=== PATIENT | female | born 1950 | race Caucasian/White ===

== ENCOUNTER 2018-07-08 12:39 | Inpatient (IN) | payer MEDICARE, MEDICAID ==
[~2018-07-08] VITALS: Ht 162.6 cm; Wt 55.8 kg
[2018-07-08] MEDS ORDERED: MORPHINE SULFATE 4 MG/ML CPJ (NOT FOR IM USE) IV STA (21:49)
[2018-07-08] MEDS ORDERED: ONDANSETRON HCL 4MG/2ML INJ IV STA (21:49)
[2018-07-08] MEDS ORDERED: BACLOFEN 10MG TABLET PO ONE (22:00)
[2018-07-08 22:23] LABS: BASOPHILS % 0.4 % (0.0-2.0); EOSINOPHILS % 0.8 % (0.0-5.0); HEMATOCRIT. 37.7 % (36.0-48.0); HEMOGLOBIN. 12.5 g/dL (12.0-16.0); LYMPHOCYTES % 17.6 % (20.0-50.0); MEAN CORPUSCULAR HEMOGLOBIN 30.4 pg (28.0-32.0); MEAN CORPUSCULAR VOLUME 91.8 fL (81.0-99.0); MEAN PLATELET VOLUME 8.5 fl (7.4-10.4); MONOCYTES % 8.1 % (2.0-8.0); NEUTROPHILS % 73.1 % (40.0-76.0); PLATELET 237 x1000/uL (130-400); RED BLOOD CELL COUNT 4.11 mill/uL (4.2-5.4); RED CELL DISTRIBUTION WIDTH 13.3 % (11.6-14.6)
[2018-07-08 22:29] LABS: CHLORIDE 107 mEq/L (98-107)
[2018-07-09] MEDS ORDERED: ASPIRIN 325MG EC TABLET PO ONE (00:45)
[2018-07-09] MEDS ORDERED: MAGNESIUM/ALUMINUM HYDROXIDE/SIMETHICONE 30ML UDC PO PRN (01:00)
[2018-07-09] MEDS ORDERED: IPRATROPIUM/ALBUTEROL 0.5-3(2.5)MG/3ML NEB INH PRN (01:00)
[2018-07-09] MEDS ORDERED: DOCUSATE SODIUM 100MG CAPSULE PO PRN (01:00)
[2018-07-09] MEDS ORDERED: NA PHOS,M-B/NA PHOS,DI-BA ENEMA 118ML PR PRN (01:00)
[2018-07-09] MEDS ORDERED: ACETAMINOPHEN 325MG TABLET PO PRN (01:00)
[2018-07-09] MEDS ORDERED: ONDANSETRON HCL 4MG/2ML INJ IV PRN (01:00)
[2018-07-09] MEDS ORDERED: CLONIDINE 0.1MG TABLET PO PRN (01:00)
[2018-07-09] MEDS ORDERED: HYDROMORPHONE HCL/PF 2MG/ML CPJ IV NR (04:30)
[2018-07-09 05:37] LABS: CREATINE KINASE MB FRACTION 2.1 ng/mL (0.5-3.6)
[2018-07-09 09:45] VITALS: BP 145/69
[2018-07-09] MEDS ORDERED: HYDROMORPHONE HCL/PF 2MG/ML CPJ IV PRN (09:50)
[2018-07-09 10:00] VITALS: BP 145/69
[2018-07-09] MEDS ORDERED: AMLODIPINE 10MG TABLET PO SCH (10:00)
[2018-07-09] MEDS ORDERED: LIOT25TA7 MT (10:31)
[2018-07-09] MEDS ORDERED: SYN150 MT (10:31)
[2018-07-09] MEDS ORDERED: LORA10CA MT (10:31)
[2018-07-09] MEDS ORDERED: BACL20TA MT (10:40)
[2018-07-09] MEDS ORDERED: PANT40TA4 MT (10:40)
[2018-07-09] MEDS ORDERED: BACL-141 MT (10:40)
[2018-07-09] MEDS ORDERED: MAGN250T10 MT (10:40)
[2018-07-09] MEDS ORDERED: ESTR0.6264 PO (10:40)
[2018-07-09] MEDS ORDERED: MIRA25TA MT (10:40)
[2018-07-09] MEDS ORDERED: CARV6.2548 MT (10:40)
[2018-07-09 12:00] VITALS: BP 133/57
[2018-07-09] MEDS ORDERED: ESTROGENS,CONJUGATED 0.625MG TABLET PO SCH (13:00)
[2018-07-09] MEDS ORDERED: LIOTHYRONINE SODIUM 25 MCG PO SCH (13:00)
[2018-07-09] MEDS: ENOXAPARIN 40MG/0.4ML SYR SUBCUT SCH (13:21)
[2018-07-09] MEDS: PANTOPRAZOLE 40MG DR TABLET PO SCH (13:22)
[2018-07-09] MEDS: BACLOFEN 10MG TABLET PO SCH ×2 (13:22→16:59)
[2018-07-09] MEDS: CARVEDILOL 6.25 MG TABLET PO SCH ×2 (13:22→22:00)
[2018-07-09] MEDS: LEVOTHYROXINE SODIUM 150MCG TABLET PO SCH (13:22)
[2018-07-09] MEDS: LIOTHYRONINE SODIUM 5MCG TABLET PO SCH (15:37)
[2018-07-09 16:00] VITALS: BP 121/46
[2018-07-09 16:35] LABS: CREATINE KINASE MB FRACTION 2.2 ng/mL (0.5-3.6)
[2018-07-09] MEDS: HYDROCODONE/ACETAMINOPHEN 5/325MG TABLET PO PRN (16:59)
[2018-07-09] MEDS ORDERED: BACLOFEN 20MG TABLET PO SCH (18:00)
[2018-07-09] MEDS ORDERED: BACLOFEN 10MG TABLET PO SCH ×2 (18:00→21:00)
[2018-07-09 20:00] VITALS: BP 110/65
[2018-07-09] MEDS: BACLOFEN 20MG TABLET PO SCH (22:00)
[2018-07-09] MEDS: PREMARIN XX SCH (22:01)
[2018-07-10] VITALS: BP 112/59
[2018-07-10] MEDS: HYDROCODONE/ACETAMINOPHEN 5/325MG TABLET PO PRN (02:50)
[2018-07-10 04:00] VITALS: BP 107/48
[2018-07-10] MEDS: PANTOPRAZOLE 40MG DR TABLET PO SCH (06:17)
[2018-07-10] MEDS: LEVOTHYROXINE SODIUM 150MCG TABLET PO SCH (06:17)
[2018-07-10 06:30] LABS: BASOPHILS % 0.7 % (0.0-2.0); EOSINOPHILS % 2.1 % (0.0-5.0); HEMATOCRIT. 33.7 % (36.0-48.0); HEMOGLOBIN. 11.3 g/dL (12.0-16.0); LYMPHOCYTES % 24.1 % (20.0-50.0); MEAN CORPUSCULAR HEMOGLOBIN 30.6 pg (28.0-32.0); MEAN CORPUSCULAR VOLUME 91.4 fL (81.0-99.0); MEAN PLATELET VOLUME 8.6 fl (7.4-10.4); MONOCYTES % 9.5 % (2.0-8.0); NEUTROPHILS % 63.6 % (40.0-76.0); PLATELET 204 x1000/uL (130-400); RED BLOOD CELL COUNT 3.69 mill/uL (4.2-5.4); RED CELL DISTRIBUTION WIDTH 13.1 % (11.6-14.6)
[2018-07-10 06:48] LABS: CHLORIDE 105 mEq/L (98-107)
[2018-07-10 07:00] LABS: LDL CHOLESTEROL 101 mg/dL (5-100)
[2018-07-10 07:01] LABS: HDL CHOLESTEROL 74 mg/dL (40-59)
[2018-07-10 08:00] VITALS: BP 116/54
[2018-07-10] MEDS: ENOXAPARIN 40MG/0.4ML SYR SUBCUT SCH (09:46)
[2018-07-10] MEDS: CARVEDILOL 6.25 MG TABLET PO SCH ×2 (09:46→21:09)
[2018-07-10] MEDS: LIOTHYRONINE SODIUM 5MCG TABLET PO SCH (09:47)
[2018-07-10] MEDS: BACLOFEN 20MG TABLET PO SCH ×2 (09:56→21:09)
[2018-07-10] MEDS: PREMARIN XX SCH ×2 (09:57→21:09)
[2018-07-10 12:00] VITALS: BP 125/49
[2018-07-10] MEDS: BACLOFEN 10MG TABLET PO SCH (13:43)
[2018-07-10 16:00] VITALS: BP 103/41
[2018-07-10 20:00] VITALS: BP 129/43
[2018-07-10] MEDS ORDERED: ATORVASTATIN CALCIUM 10MG TABLET PO SCH (21:00)
[2018-07-10 21:52] LABS: CREATINE KINASE MB FRACTION 1.3 ng/mL (0.5-3.6)
[2018-07-11] VITALS: BP 132/60
[2018-07-11 00:25] LABS: CREATINE KINASE 56 IU/L (26-192)
[2018-07-11 00:27] LABS: CREATINE KINASE MB FRACTION 1.3 ng/mL (0.5-3.6)
[2018-07-11] MEDS: HYDROCODONE/ACETAMINOPHEN 5/325MG TABLET PO PRN ×2 (02:11→11:54)
[2018-07-11 04:00] VITALS: BP 118/66
[2018-07-11] MEDS: LEVOTHYROXINE SODIUM 150MCG TABLET PO SCH (06:24)
[2018-07-11] MEDS: PANTOPRAZOLE 40MG DR TABLET PO SCH (06:24)
[2018-07-11 08:00] VITALS: BP 131/49
[2018-07-11 08:00] LABS: CREATINE KINASE 57 IU/L (26-192)
[2018-07-11 08:01] LABS: CREATINE KINASE MB FRACTION 1.5 ng/mL (0.5-3.6)
[2018-07-11] MEDS: PREMARIN XX SCH (09:00)
[2018-07-11] MEDS: CARVEDILOL 6.25 MG TABLET PO SCH (09:36)
[2018-07-11] MEDS: LIOTHYRONINE SODIUM 5MCG TABLET PO SCH (09:37)
[2018-07-11] MEDS: ENOXAPARIN 40MG/0.4ML SYR SUBCUT SCH (09:37)
[2018-07-11] MEDS: BACLOFEN 20MG TABLET PO SCH (09:50)
[2018-07-11] MEDS: BACLOFEN 10MG TABLET PO SCH (11:55)
[2018-07-11 12:00] VITALS: BP 126/61
[2018-07-11 13:48] VITALS: BP 126/61
== END 2018-07-11 14:23 | disposition home or self-care (01) | DRG 605 ==
LOC: ER 12:39 → 8WST 07-09 00:41 → EDBEDREQTM 07-09 00:47 → EDBEDREQ 07-09 00:47 → SUPCPDRO 07-09 00:49 → ENRESERV 07-09 07:24
PROVIDERS: ADMIT Hospitalist; ATTEND Hospitalist
DX: S00.03XA Contusion of scalp, initial encounter (principal); G12.21 Amyotrophic lateral sclerosis; E03.9 Hypothyroidism, unspecified; S00.31XA Abrasion of nose, initial encounter; S00.511A Abrasion of lip, initial encounter; E78.5 Hyperlipidemia, unspecified; R74.8 Abnormal levels of other serum enzymes; G31.9 Degenerative disease of nervous system, unspecified; W05.0XXA Fall from non-moving wheelchair, initial encounter; Y93.89 Activity, other specified; I25.2 Old myocardial infarction; Y92.89 Other specified places as the place of occurrence of the external cause; Y99.8 Other external cause status
CPT/HCPCS: 36415; 70486; 71045; 80061; 82550; 82553; 83036; 83880; 84439; 84443; 84484; 85379; 93005; 93306; 93970; 96372; 96374; 96375; 99285; J1170; J1650; J2270; J2405; J7620